=== PATIENT | female | born 1955 | race Caucasian/White ===

== ENCOUNTER 2018-02-02 06:24 | Emergency (ER) | payer OTHER ==
[2018-02-02 06:33] VITALS: BP 149/94; PULSE 67; TEMP 97.5; BMI 20.3
--- NOTE | 2018-02-02 06:34 | PDOC ---
History of Present Illness - General Chief Complaint: Pain, Acute Stated Complaint: IRRITATION TO RIGHT EYE Time Seen by Provider: 02/02/18 06:25 - History of Present Illness Initial Comments: 02/02/18 06:34 62yo F hx JOSE R presents to the ED with R eye irritation upon waking up this morning. Pt can not identify any foreign bodies that may have gotten into her eyes. No recent exposure to welding. Denies blurry vision, headache, discharge, trauma to the eye. Has no problems moving her eye. +photophobia. Denies fevers, dizziness. L eye with no issues. Has been in her [facility], denies fevers, chills, cp, sob, abd pain, n/v/d. Does not remember last tdap. Past History - Past Medical History Allergies/Adverse Reactions: Allergies Allergy/AdvReac Type Severity Reaction Status Date / Time hydrocodone bitartrate Allergy Intermediate Low Blood Verified 02/02/18 06:25 [From Vicodin] Pressure Home Medications: Ambulatory Orders Ofloxacin 0.3% Ophth Soln [Ocuflox -] 2 drop OD Q1H 4 Days #1 bottle 02/02/18 Ofloxacin 0.3% Ophth Soln [Ocuflox -] 2 drop OD Q1H 4 Days #1 bottle 02/02/18 Cardiac Disorders: Yes (LBBB, MITRAL VALVE PROLAPSE) COPD: No - Immunization History Td Vaccination: No Immunization Up to Date: No - Suicide/Smoking/Psychosocial Hx Smoking History: Never smoked Have you smoked in the past 12 months: No Information on smoking cessation initiated: No Hx Alcohol Use: Yes (OCCAS.) Drug/Substance Use Hx: No Substance Use Type: None Review of Systems - Review of Systems Comments:: 02/02/18 06:37 GENERAL/CONSTITUTIONAL: No fever or chills. No weakness. HEAD, EYES, EARS, NOSE AND THROAT: No change in vision. +R eye irritation. No ear pain or discharge. No sore throat. GASTROINTESTINAL: No nausea, vomiting, diarrhea or constipation. GENITOURINARY: No dysuria, frequency, or change in urination. CARDIOVASCULAR: No chest pain or shortness of breath. RESPIRATORY: No cough, wheezing, or hemoptysis. MUSCULOSKELETAL: No joint or muscle swelling or pain. No neck or back pain. SKIN: No rash NEUROLOGIC: No headache, vertigo, loss of consciousness, or change in strength/ sensation. ENDOCRINE: No increased thirst. No abnormal weight change. HEMATOLOGIC/LYMPHATIC: No anemia, easy bleeding, or history of blood clots. ALLERGIC/IMMUNOLOGIC: No hives or skin allergy. *Physical Exam - Vital Signs Last Vital Signs Temp Pulse Resp BP Pulse Ox 97.5 F L 67 16 149/94 100 02/02/18 06:29 02/02/18 06:29 02/02/18 06:29 02/02/18 06:29 02/02/18 06:29 - Physical Exam Comments: 02/02/18 06:38 GENERAL: Awake, alert, and fully oriented, in no acute distress HEAD: No temporal ttp EYES: PERRLA, EOMI, 20/20 vision OU. No papilledema OD: +injected sclera, + 1cm curvilinear fluorescein uptake in shape of contact lens from 4 to 8 o' clock. No ulcers or infiltrates. No hyphema or hypopeon. ENT: Oropharynx clear without exudates. Moist mucosa NECK: Normal ROM, supple LUNGS: Breath sounds equal, clear to auscultation bilaterally. No wheezes, and no crackles HEART: Regular rate and rhythm, normal S1 and S2, no murmurs, rubs or gallops ABDOMEN: Soft, nontender, normoactive bowel sounds. EXTREMITIES: Normal range of motion, no edema. No clubbing or cyanosis. No cords, erythema, or tenderness NEUROLOGICAL: Normal speech, cranial nerves intact, 5/5 strength in all 4 extremities, normal sensation to light touch in all 4 extremities, normal gait SKIN: Warm, Dry, normal turgor, no rashes or lesions noted. Medical Decision Making - Medical Decision Making 02/02/18 07:00 +corneal abrasion likely 2/2 contact lens No evidence of ulcer or infiltrate Will treat with ofloxacin given pseudomonas risk factor Pt to see vrt mechanic later today for re-eval pt advised to not wear lens until cleared to do so by her ophtho Stable for DC home I discussed the physical exam findings, ancillary test results and final diagnoses with the patient. I answered all of the patient's questions. The patient was satisfied with the care received and felt comfortable with the discharge plan and treatment plan. The patient will call their primary care physician within 24 hours to arrange follow-up and will return to the Emergency Department with any new, persistent or worsening symptoms. *DC/Admit/Observation/Transfer Diagnosis at time of Disposition: Corneal abrasion due to contact lens - Discharge Dispostion Disposition: HOME Condition at time of disposition: Stable Decision to Admit order: No - Prescriptions Prescriptions: Ofloxacin 0.3% Ophth Soln [Ocuflox -] 2 drop OD Q1H 4 Days #1 bottle Ofloxacin 0.3% Ophth Soln [Ocuflox -] 2 drop OD Q1H 4 Days #1 bottle - Referrals - Patient Instructions Printed Discharge Instructions: DI for Corneal Abrasion Additional Instructions: As discussed, follow up with your vrt mechanic later today for re-evaluation of your eye. Take the eye drops as prescribed: For the first 2 days, put 1-2 drops every 30 mins while awake and every 6 hours while sleeping for 2 days in the right eye. On days 3-4, apply 1-2 drops every 4-6 hours to the right eye. Do not wear your contact lens until cleared to do so by your vrt mechanic Return to the emergency department if you have any new, worsening, or concerning symptoms - Post Discharge Activity - Attestations Physician Attestion: 02/02/18 06:58 I, Dr. Reji Lutz MD, attest that this document has been prepared under my direction and personally reviewed by me in its entirety. I further attest, that it accurately reflects all work, treatment, procedures and medical decision -making performed by me.
[2018-02-02] MEDS ORDERED: DIPHTH,PERTUSS(ACELL),TET 0.5 ML DISP.SYRIN IM ONE (06:45)
== END 2018-02-02 07:14 | disposition home or self-care (01) ==
LOC: FER 06:24
PROC: 3E0234Z Introduction of Serum, Toxoid and Vaccine into Muscle, Percutaneous Approach (ICD-10-PCS; principal; 2018-02-02)
DX: H18.821 Corneal disorder due to contact lens, right eye (principal); I44.7 Left bundle-branch block, unspecified
CPT/HCPCS: 90715; 99281-25